=== PATIENT | male | born 1980 | race Hispanic/Latino ===

== ENCOUNTER 2018-12-19 17:18 | Emergency (ER) | payer SELFPAY ==
[2018-12-19 18:08] VITALS: BP 139/83
--- NOTE | 2018-12-19 18:11 | Emergency Department Report ---
- General Chief complaint: Skin/Abscess/Foreign Body Stated complaint: LFT HAND BOIL/SWELLING/PAIN Time Seen by Provider: 12/19/18 18:06 Source: patient Mode of arrival: Ambulatory Limitations: No Limitations - History of Present Illness Initial comments: pt is a 38 yo male who presents to the ED with right hand edema and erythema that began two days ago. denies any fever. states he had a small bump to the left index finger knuckle with some clear drainage. doesnt remember seeing or feeling anything bite him. 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 no hx of DM. no allergies to meds. - Related Data Previous Rx's Medication Instructions Recorded Last Taken Type Sulfamethoxazole/Trimethoprim 1 each PO BID 7 Days #14 tablet 12/19/18 Unknown Rx [Bactrim DS TAB] Allergies Allergy/AdvReac Type Severity Reaction Status Date / Time No Known Allergies Allergy Unverified 12/19/18 17:43 Abscess Boil HPI - HPI Chief Complaint: Skin/Abscess/Foreign Body Stated Complaint: LFT HAND BOIL/SWELLING/PAIN Time Seen by Provider: 12/19/18 18:06 Home Medications: Previous Rx's Medication Instructions Recorded Last Taken Type Sulfamethoxazole/Trimethoprim 1 each PO BID 7 Days #14 tablet 12/19/18 Unknown Rx [Bactrim DS TAB] Allergies/Adverse Reactions: Allergies Allergy/AdvReac Type Severity Reaction Status Date / Time No Known Allergies Allergy Unverified 12/19/18 17:43 ED Review of Systems ROS: Stated complaint: LFT HAND BOIL/SWELLING/PAIN Other details as noted in HPI Comment: All other systems reviewed and negative ED Past Medical Hx - Past Medical History Previous Medical History?: No - Surgical History Past Surgical History?: Yes Hx Appendectomy: Yes - Medications Home Medications: Home Medications Medication Instructions Recorded Confirmed Last Taken Type Sulfamethoxazole/Trimethoprim 1 each PO BID 7 Days #14 tablet 12/19/18 Unknown Rx [Bactrim DS TAB] ED Physical Exam - General Limitations: No Limitations General appearance: alert, in no apparent distress - Head Head exam: Present: atraumatic, normocephalic - Eye Eye exam: Present: normal appearance - ENT ENT exam: Present: mucous membranes moist - Neurological Exam Neurological exam: Present: alert, oriented X3 - Psychiatric Psychiatric exam: Present: normal affect, normal mood - Skin Skin exam: Present: warm, dry, other (edema, erythema, and increased warmth to the left dorsal hand, small scab to the left index MCP, no drainage, no obvious fluctuance, FROM of the left hand and fingers, 2+ radial pulse, sensation intact) ED Course Vital Signs 12/19/18 18:06 Temperature 98.6 F Pulse Rate 81 Respiratory 16 Rate Blood Pressure 139/83 O2 Sat by Pulse 99 Oximetry ED Medical Decision Making - Medical Decision Making pt is a 38 yo male who presents to the ED with right hand edema and erythema that began two days ago. denies any fever. states he had a small bump to the left index finger knuckle with some clear drainage. doesnt remember seeing or feeling anything bite him. 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 no hx of DM. no allergies to meds. VSS. on exam: edema, erythema, and increased warmth to the left dorsal hand, small scab to the left index MCP, no drainage, no obvious fluctuance, FROM of the left hand and fingers, 2+ radial pulse, sensation intact. examination consistent with cellulitis, no abscess at this time. pt given prescription for bactrim. advised to please take medication as prescribed to completion. follow up with a primary care doctor for reevaluation in the next 3-5 days. return to the emergency room immediately for any new or worsening symptoms including but not limited to worsening swelling, worsening redness, worsening pain, fever, drainage, etc. Critical care attestation.: If time is entered above; I have spent that time in minutes in the direct care of this critically ill patient, excluding procedure time. ED Disposition Clinical Impression: Cellulitis Qualifiers: Site of cellulitis: extremity Site of cellulitis of extremity: upper extremity Laterality: left Qualified Code(s): L03.114 - Cellulitis of left upper limb Disposition: TO HOME OR SELFCARE Is pt being admited?: No Does the pt Need Aspirin: No Condition: Stable Instructions: Cellulitis (ED) Additional Instructions: please take medication as prescribed to completion. follow up with a primary care doctor for reevaluation in the next 3-5 days. return to the emergency room immediately for any new or worsening symptoms including but not limited to worsening swelling, worsening redness, worsening pain, fever, drainage, etc. Prescriptions: Sulfamethoxazole/Trimethoprim [Bactrim DS TAB] 1 each PO BID 7 Days #14 tablet Referrals: [facility] [Outside] - 3-5 Days [facility] [Outside] - 3-5 Days [facility] [Provider Group] - 3-5 Days Time of Disposition: 18:12 Print Language: LITHUANIAN
== END 2018-12-19 18:38 | disposition home or self-care (01) ==
LOC: ED 17:18
DX: L03.114 Cellulitis of left upper limb (principal); Z90.49 Acquired absence of other specified parts of digestive tract; Z79.899 Other long term (current) drug therapy

== ENCOUNTER 2018-12-21 13:54 | Emergency (ER) | payer SELFPAY ==
--- NOTE | 2018-12-21 13:58 | Emergency Department Report ---
Blank Doc - Documentation Documentation: 38-year-old male that presents with left hand cellulitis. Is getting worse. This initial assessment/diagnostic orders/clinical plan/treatment(s) is/are subject to change based on patient's health status, clinical progression and re- assessment by fellow clinical providers in the ED. Further treatment and workup at subsequent clinical providers discretion. Patient/guardians urged not to elope from the ED as their condition may be serious if not clinically assessed and managed. Initial orders include: 1- Patient sent to MAIN for further evaluation and treatment 2- labs 3- xrays
[2018-12-21 14:22] LABS: Basophils # (Auto) 0.2 K/mm3 (0.0-0.1); Basophils % (Auto) 1.4 % (0.0-1.8); Eosinophils % (Auto) 0.2 % (0.0-4.3); Hematocrit 39.1 % (35.5-45.6); Hemoglobin 12.9 gm/dl (11.8-15.2); Lymphocytes # (Auto) 2.1 K/mm3 (1.2-5.4); Mean Corpuscular HGB Conc 33 % (32-34); Mean Corpuscular Volume 84 fl (84-94); Monocytes # (Auto) 1.1 K/mm3 (0.0-0.8); Monocytes % (Auto) 6.6 % (0.0-7.3); Platelet Count 261 K/mm3 (140-440); Red Blood Count 4.65 M/mm3 (3.65-5.03); Red Cell Distribution Width 15.6 % (13.2-15.2)
[2018-12-21 14:47] LABS: BUN/Creatinine Ratio 9; Blood Urea Nitrogen 8 mg/dL (9-20); Calcium 8.9 mg/dL (8.4-10.2); Hemolysis Index 0
[2018-12-21] MEDS ORDERED: NACL 0.9% 1000 ML 1,000 ML IV ONE ×2 (14:51→19:05)
[2018-12-21] MEDS ORDERED: VANCOMYCIN/NS 1 GM/250 ML 1 GM/250 ML BAG IV ONE (14:51)
[2018-12-21] MEDS ORDERED: MORPHINE IV ONE (14:52)
--- NOTE | 2018-12-21 15:14 | XRay Report ---
LEFT HAND, 3 VIEWS INDICATION: hand pain and swelling with cellulitis. COMPARISON: None. IMPRESSION: There is severe diffuse soft tissue swelling. No evidence for soft tissue gas or foreign body. The bony structures are intact. No findings to suggest osteomyelitis. No significant joint pa thology. Signer Name: Kennedy Page Jr, MD Signed: 12/21/2018 3:10 PM Workstation Name: [id number]
[2018-12-21] MEDS ORDERED: VANCOMYCIN 1,500 MG in NACL 0.9% 500 ML 500 ML IV ONE (16:00)
--- NOTE | 2018-12-21 18:04 | Cat Scan Report ---
CT upper extrem LT w con INDICATION: left hand abscess/infection. TECHNIQUE: All CT scans at this location are performed using the following dose modulation technique: Automated exposure control. COMPARISON: None available. FINDINGS: No acute skeletal abnormality. Along the dorsal aspect of the hand superficial to the index finger metacarpophalangeal articulation, there is a small circumscribed fluid collection which communicates with the skin surface. Skin surfa ce communication is seen on axial series 4 image 76. This collection measures 1.5 x 0.6 cm on axial s eries 4 image 86 and extends craniocaudally for approximately 3 cm on sagittal reformat image 14. There is extensive dorsal subcutaneous edema within the hand, wrist, and forearm. No intramuscular collections are seen in the forearm. IMPRESSION: 1. Superficial soft tissue abscess along the dorsum of the left hand superficial to the index finger metacarpophalangeal articulation, measurements as above. This communicates with the skin surface. 2. There is extensive diffuse dorsal subcutaneous edema within the hand, wrist, and forearm. 3. No acute skeletal abnormality. Signer Name: Fei Elise MD Signed: 12/21/2018 5:59 PM Workstation Name: [id number]
[2018-12-21] MEDS ORDERED: XYLOCAINE 1% MPF 5 mL INFILTRATI ONE (18:09)
--- NOTE | 2018-12-21 19:10 | Emergency Department Report ---
HPI - General Chief Complaint: Extremity Injury, Upper Time Seen by Provider: 12/21/18 13:57 - HPI HPI: 38-year-old male presents to the emergency department with complaint of pain, swelling and infection to the left hand. The patient was seen here 2 days ago for similar symptoms but had been having the symptoms for 2 days prior to that. It started off as a small bump and some erythema at the patient was unsure if he was bitten or stung by something. He works on power lines. The patient was discharged home with the diagnosis of cellulitis and placed on Bactrim. He has been taking the medication compliantly but the symptoms have worsened. No fever. The patient says that he tried to incise and drain, what appeared to be an abscess, on his own without much relief or success. He is right-hand dominant. The patient does admit to having a previous history of IV drug use but has not used in many months. ED Past Medical Hx - Past Medical History Previous Medical History?: No Hx Liver Disease: Yes (HEP C,HEP B) - Surgical History Hx Appendectomy: Yes - Social History Smoking Status: Current Every Day Smoker Substance Use Type: Marijuana - Medications Home Medications: Home Medications Medication Instructions Recorded Confirmed Last Taken Type Sulfamethoxazole/Trimethoprim 1 each PO BID 7 Days #14 tablet 12/19/18 Unknown Rx [Bactrim DS TAB] ED Review of Systems ROS: Stated complaint: STAPH INFECTION Other details as noted in HPI Comment: All other systems reviewed and negative Constitutional: denies: chills, fever Musculoskeletal: joint swelling, arthralgia, myalgia Skin: rash, lesions, change in color Neurological: denies: numbness, paresthesias Physical Exam - Physical Exam Vital Signs: Vital Signs 12/21/18 12/21/18 13:57 16:10 Temperature 99.1 F Pulse Rate 110 H Respiratory 18 18 Rate Blood Pressure 145/88 O2 Sat by Pulse 100 Oximetry Physical Exam: GENERAL: The patient is well-developed well-nourished. HENT: Normocephalic. Atraumatic. Patient has moist mucous membranes. EYES: Extraocular motions are intact. NECK: Supple. Trachea is midline. CHEST/LUNGS: Clear to auscultation. There is no respiratory distress noted. HEART/CARDIOVASCULAR: Regular. There is mild tachycardia. There is no murmur. ABDOMEN: Abdomen is soft, nontender. Patient has normal bowel sounds. There is no abdominal distention. SKIN: There is moderate to severe nonpitting swelling to the left hand, the proximal fingers and the distal forearm. There is erythema, thickened skin concerning for cellulitis. There is a fluctuant abscess seen to the dorsum of the left hand at the metacarpophalangeal joint. There is lymphangitis going up the left arm towards the axilla. NEURO: The patient is awake, alert, and oriented. The patient is cooperative. The patient has no focal neurologic deficits. Normal speech. MUSCULOSKELETAL: There is tenderness to palpation to the dorsal left hand. The patient cannot fully flex or fully extend the fingers of the left hand secondary to pain and swelling. Radial pulse +2 over 4 and capillary refill less than 2 seconds. ED Course Vital Signs 12/21/18 12/21/18 13:57 16:10 Temperature 99.1 F Pulse Rate 110 H Respiratory 18 18 Rate Blood Pressure 145/88 O2 Sat by Pulse 100 Oximetry ED Medical Decision Making - Lab Data Result diagrams: 12/21/18 14:07 12/21/18 14:07 - Radiology Data Radiology results: report reviewed, image reviewed interpreted by me: X-ray of the left hand shows diffuse edema but no signs of any fracture, dislocation or osteomyelitis. CT upper extrem LT w con INDICATION: left hand abscess/infection. TECHNIQUE: All CT scans at this location are performed using the following dose modulation technique: Automated exposure control. COMPARISON: None available. FINDINGS: No acute skeletal abnormality. Along the dorsal aspect of the hand superficial to the index finger metacarpophalangeal articulation, there is a small circumscribed fluid collection which communicates with the skin surface. Skin surface communication is seen on axial series 4 image 76. This collection measures 1.5 x 0.6 cm on axial series 4 image 86 and extends craniocaudally for approximately 3 cm on sagittal reformat image 14. There is extensive dorsal subcutaneous edema within the hand, wrist, and forearm. No intramuscular collections are seen in the forearm. IMPRESSION: 1. Superficial soft tissue abscess along the dorsum of the left hand superficial to the index finger met acarpophalangeal articulation, measurements as above. This communicates with the skin surface. 2. There is extensive diffuse dorsal subcutaneous edema within the hand, wrist, and forearm. 3. No acute skeletal abnormality. - Medical Decision Making This patient presents with worsening infection of the left hand. He now has edema to the proximal fingers, the entire hand, and the distal forearm with erythema, a abscess, and some lymphangitis going up the left arm. Patient has stable vital signs and is afebrile but there is mild tachycardia. He has a leukocytosis of 16,000 and a mild elevation in his lactic acid level. I did an I&D of the superficial abscess over the first metacarpophalangeal joint was able to get out about 1 mL of purulence and then the wound was soaked in soapy warm water. The patient has signs of sepsis with the hand cellulitis and abscess being the source of infection. He has lymphangitis. The patient will need admission. However we do not have orthopedic hand surgery. For this reason the patient will be sent to the [facility] emergency department and was accepted by the hand surgeon, Dr. Nicole. - Differential Diagnosis cellulitis, abscess, flexor tenosynovitis, sepsis Critical Care Time: No Critical care attestation.: If time is entered above; I have spent that time in minutes in the direct care of this critically ill patient, excluding procedure time. ED Disposition Clinical Impression: Cellulitis of left hand, Abscess of left hand, Failure of outpatient treatment Sepsis Qualifiers: Sepsis type: sepsis due to unspecified organism Sepsis acute organ dysfunction status: unspecified Qualified Code(s): A41.9 - Sepsis, unspecified organism Disposition: [id number]/TX-[id number] ANOTHER TYPE HLTHCARE Is pt being admited?: Yes Condition: Serious Referrals: PRIMARY CARE, [Primary Care Provider] - 3-5 Days Time of Disposition: 20:16
--- NOTE | 2018-12-21 19:18 | Event Note ---
38 YO Right handed Male presents to ED for evaluation of Pain and swelling in his left hand. Pt seen and evaluated in ED and found to have worsening swelling and pain over the past 2 days. Pt seen and evaluated in ED and found to have pain, swelling, numbness, and weakness his LUE with symptoms consistent with Tenosynovitis with risk of development of caompartment syndrome. Pt treated with I and D of Left hand abscess as well as with braod spectrum antibiotic therapy. Recommend transfer to higher level of care for Ortho Hand Surgical evaluation and treatment. GEN: AOx3 Neuro:CN 2-12 Intact Resp:CTA Bilaterally CV:RRR, NO MRG GI:Soft, NT, ND, +BS, : NO lesions Renal:Normal UOP ID:Leukocytosis, Skin: WDI, Left hand erythema Ext: L hand edema, numbness, weakness, loss of sensation to phalanges.
[2018-12-21 22:07] VITALS: BP 103/74
== END 2018-12-21 22:16 | disposition other institution (70) ==
LOC: ED 13:54
DX: A41.9 Sepsis, unspecified organism (principal); L03.114 Cellulitis of left upper limb; F17.200 Nicotine dependence, unspecified, uncomplicated; F12.10 Cannabis abuse, uncomplicated; Z78.9 Other specified health status
CPT/HCPCS: 36415; 73130; 73201; 80048; 82140; 85025; J2270; J3370; J7030; J7040; Q9967; 96361; 96365; 96375